=== PATIENT | male | born 1980 | race Caucasian/White ===

== ENCOUNTER 2018-04-04 15:11 | Observation (INO) | payer MEDICARE, MEDICAID ==
[2018-04-04] MEDS ORDERED: 0.9 % SODIUM CHLORIDE 1,000 ML BAG IV ONE (15:58)
--- NOTE | 2018-04-04 16:04 | Emergency Department Record ---
History of Present Illness - General Chief complaint: Male Urogenital Problem Stated complaint: UNABLE TO URINATE, NOT FELLING WELL Time Seen by Provider: 04/04/18 15:58 Source: Patient ([facility] grinder from [facility] - know this patient for 6 weeks) Mode of Arrival: Ambulatory - History of Present Illness Initial comments: Pt from [facility] with caregiver familiar with patient over past 6 weeks. Today noted decreased urine output. There is no report of fever, N/V/D. Ne recent illness, no noted urinary frequency or pain. Behavior is typical. Pt unable to add to hx due to mental challenge. Pt willing to drink today, just not making urine. No hx of similar Onset/Timin -: Days(s) Radiation: Back Severity: Mild Severity scale (1-10): 3 Quality: Aching Consistency: Constant Improves with: None Worsens with: None - Related Data Home Medications Medication Instructions Recorded Confirmed Last Taken Clobazam [Onfi] 10 mg PO DAILY 04/04/18 04/04/18 04/03/18 Divalproex Sodium [Depakote] 750 mg PO BID 04/04/18 04/04/18 04/03/18 Fluoxetine HCl 20 mg PO DAILY 04/04/18 04/04/18 04/03/18 Topiramate [Topamax] 200 mg PO BID 04/04/18 04/04/18 04/03/18 Allergies Allergy/AdvReac Type Severity Reaction Status Date / Time Unable to Assess Allergy Unverified 04/04/18 15:59 Travel Screening - Travel/Exposure Within Last 30 Days Have you traveled within the last 30 days?: No Review of Systems ROS unobtainable: Other (Review limited my Mental delay - hx by caregiver ) Constitutional: Denies: Chills, Fever ENT: Denies: Congestion Respiratory: Denies: Cough Gastrointestinal: Denies: Abdominal pain, Constipation, Diarrhea, Nausea, Vomiting Genitourinary: Denies: Discharge, Hematuria Musculoskeletal: Denies: Back pain Skin: Denies: Rash Neurological: Denies: Confusion Past Medical History - SOCIAL HISTORY Smoking Status: Never smoker Alcohol Use: None Drug Use: None - RESPIRATORY Hx Respiratory Disorders: No - CARDIOVASCULAR Hx Cardio Disorders: No - NEURO Hx Neuro Disorders: No - GI Hx GI Disorders: No - Hx Genitourinary Disorders: No - ENDOCRINE Hx Endocrine Disorders: No - MUSCULOSKELETAL Hx Musculoskeletal Disorders: No - PSYCH Hx Psych Problems: No - HEMATOLOGY/ONCOLOGY Hx Hematology/Oncology Disorders: No Family Medical History Any Significant Family History?: No Physical Exam - General General Appearance: Alert, Cooperative, No acute distress Limitations: Altered mental status, Other (mental delay - chronic ) - Head Head exam: Atraumatic, Normal inspection Head exam detail: negative: Abrasion, Billingsley's sign - Eye Eye exam: Normal appearance, PERRL, EOMI - ENT ENT exam: Mucous membranes moist, Normal orophraynx, TM's normal bilaterally - Neck Neck exam: Normal inspection - Respiratory Respiratory exam: Normal lung sounds bilaterally. negative: Wheezes - Cardiovascular Cardiovascular Exam: Regular rate, Normal rhythm Peripheral Pulses: 2+: Radial (R), Radial (L) - GI/Abdominal GI/Abdominal exam: Soft, Normal bowel sounds, Other (no pain in abdomen with standing HOP at bedside..."hurts my feet". ). negative: Guarding, Tenderness - Rectal Rectal exam: Deferred - Extremities Extremities exam: Normal inspection - Neurological Neurological exam: Alert, CN II-XII intact, Normal gait - Psychiatric Psychiatric exam: Normal mood. negative: Anxious, Depressed - Skin Skin exam: Normal color. negative: Rash Course Vital Signs 04/04/18 15:48 Temperature 99.1 F Pulse Rate 62 Respiratory 16 Rate Blood Pressure 109/65 Pulse Ox 93 L - Reevaluation(s) Reevaluation #1: 04/04/18 17:43 See note in MDM section regarding admission and Dr. Haider discussion. 04/04/18 17:43 Solumedrol 60mg given at recommendation of Dr. Haider per Dr. Rodriguez advice. Medical Decision Making - Management Options MDM Management: Additional Work-up Planned (e.g. ADM/Transfer/OP Study) - Data Complexity MDM Data: Labs Ordered and/or Reviewed, X-Ray Ordered and/or Reviewed, Independent Visualization of Image, Tracing, or Specimen - Lab Data Result diagrams: 04/04/18 16:15 04/04/18 16:15 - Radiology Data -: Radiology Exam Interpreted by Myself - Medical Decision Making [facility] a [facility]. Has visiting physician. Presents with low urine output. Found to have Thrombocytopenia. Plan for admission with Hematology, Dr. Rodriguez consult. Dr. Haider aware and accepts, case was reviewed with Dr. Rodriguez by Dr. Haider. US in progress for spleen. AB given for UTI, culture sent. Orders to floor completed: HOLD Prozac. Disposition Disposition: Admit Clinical Impression: Thrombocytopenia, Hyponatremia, UTI (urinary tract infection) Disposition: Still a Patient at [facility] Decision to Admit: Admit from ER Decision to Admit Date: 04/04/18 Decision to Admit Time: 17:30 Accepting Physician: Dr Haider Time Discussed w/Accepting Physician: 17:30 Condition: (3) Guarded Forms: Patient Portal Access Quality - Quality Measures Quality Measures: N/A - Blood Pressure Screening Does Patient Have Any of the Following: No Blood Pressure Classification: Normal BP Reading Systolic Measurement: 109 Diastolic Measurement: 65 Screening for High Blood Pressure: < Normal BP, F/U Not Required > [G8783]
[2018-04-04 16:08] LABS: URINE APPEARANCE CLEAR; URINE BILIRUBIN SMALL (NEGATIVE); URINE BLOOD SMALL (NEGATIVE); URINE COLOR YELLOW; URINE KETONE TRACE (NEGATIVE); URINE LEUKOCYTE ESTERASE TRACE (NEGATIVE); URINE NITRITE POSITIVE (NEGATIVE)
[2018-04-04 16:10] LABS: URINE PROTEIN 300 mg/dL (NEGATIVE)
[2018-04-04 16:30] LABS: HEMATOCRIT 36.6 % (42.0-52.0); HEMOGLOBIN 12.8 gm/dl (14.0-18.0); MEAN CELL VOLUME 90.4 fl (81-97); MEAN CORPUSCULAR HEMOGLOBIN 31.6 pg (27-33); MEAN PLATELET VOLUME 9.4 fl (7.4-10.4); RED BLOOD COUNT 4.05 M/uL (4.40-5.70); WHITE BLOOD COUNT W/O DIFF 7.1 K/uL (4.2-12.2)
[2018-04-04 16:34] LABS: PLATELET COUNT 22 K/uL (130-400)
[2018-04-04 16:40] LABS: BLOOD UREA NITROGEN 15 mg/dL (6-20); CREATININE 0.7 mg/dL (0.7-1.2); EST GLOMERULAR FILTRATION RATE > 60 mL/min
[2018-04-04 16:43] LABS: GLUCOSE,RANDOM 93 mg/dL (74-109)
[2018-04-04 16:55] LABS: ANISOCYTOSIS 2+; OVALOCYTES 1+; PLATELET ESTIMATE DECREASED (NORMAL)
[2018-04-04] MEDS ORDERED: CEFTRIAXONE SODIUM 1 GM in 0.9 % SODIUM CHLORIDE 100ML 100 ML IVPB ONE (17:02)
[2018-04-04 17:23] LABS: ALBUMIN 3.3 g/dL (4.0-5.0); ALKALINE PHOSPHATASE 40 U/L (40-129); ALT/SGPT 38 U/L (<41); AST/SGOT 63 U/L (10.0-50.0)
[2018-04-04 17:25] LABS: BILIRUBIN,DIRECT < 0.2 mg/dL (0-0.3)
[2018-04-04] MEDS ORDERED: METHYLPREDNISOLONE PF 125MG/VIAL IVP ONE (17:30)
[2018-04-04 17:31] LABS: URINE APPEARANCE CLEAR; URINE BILIRUBIN NEGATIVE (NEGATIVE); URINE BLOOD TRACE-I (NEGATIVE); URINE COLOR YELLOW; URINE GLUCOSE (UA) NEGATIVE (NEGATIVE); URINE KETONE NEGATIVE (NEGATIVE); URINE LEUKOCYTE ESTERASE NEGATIVE (NEGATIVE); URINE NITRITE NEGATIVE (NEGATIVE)
[2018-04-04 17:37] LABS: INR 1.1; PARTIAL THROMBOPLASTIN TIME 29.7 SECONDS (24.5-39.1); PROTHROMBIN TIME (PATIENT) 11.6 SECONDS (9.5-12.1)
[2018-04-04 17:53] LABS: URINE AMORPHOUS SEDIMENT 2+; URINE MUCUS HEAVY; URINE RENAL EPITHELIAL CELLS 0 - 2 /hpf; URINE TRANSITIONAL EPI CELLS 0 - 2 /hpf
[2018-04-04] MEDS ORDERED: 0.9 % SODIUM CHLORIDE 1000ML 1,000 ML IV PRN (19:16)
[2018-04-04] MEDS: TOPIRAMATE 100MG TABLET PO SCH (21:28)
[2018-04-04] MEDS ORDERED: DIVALPROEX SODIUM 250 MG TAB.ER.24H PO SCH (22:00)
[2018-04-05] MEDS ORDERED: CEFTRIAXONE 1GM/50ML BAG 1 GM/50 ML BAG IVPB SCH (06:00)
[2018-04-05] MEDS ORDERED: METHYLPREDNISOLONE PF 125MG/VIAL IVP SCH (06:00)
--- NOTE | 2018-04-05 07:13 | RADIOLOGY REPORT ---
EXAM: CHEST, TWO VIEWS HISTORY: WEAKNESS. TECHNIQUE: Frontal and lateral views of the chest were obtained. Comparison: None. FINDINGS: The heart size is normal. Left sided stimulating device noted. The lungs are clear. No pneumothorax. IMPRESSION: NO ACUTE CARDIOPULMONARY PROCESS. JOB NUMBER: [id number] MTDD
--- NOTE | 2018-04-05 07:17 | ULTRASOUND REPORT ---
EXAM: ULTRASOUND OF THE ABDOMEN HISTORY: PAIN. TECHNIQUE: Complete transabdominal ultrasound of the abdomen was obtained. Comparison: None. FINDINGS: The liver is homogeneous in echotexture without focal lesion. No gallstones or gallbladder wall thickening. The CBD measures 3.7 mm. The visualized pancreas is unremarkable. The spleen is unremarkable at 12 cm. The right kidney measures 11 x 5 cm and the left kidney measures 11 x 5 cm. Portions of the pancreas were not well seen due to bowel gas. No renal calculus , mass, or hydronephrosis. The visualized abdominal aorta and inferior vena cava are unremarkable. No free fluid. IMPRESSION: UNREMARKABLE COMPLETE TRANSABDOMINAL ULTRASOUND OF THE ABDOMEN. JOB NUMBER: [id number] MTDD
[2018-04-05] MEDS ORDERED: 0.9 % SODIUM CHLORIDE 1000ML 1,000 ML IV ONE (07:34)
[2018-04-05 08:19] LABS: HEMATOCRIT 39.7 % (42.0-52.0); HEMOGLOBIN 13.3 gm/dl (14.0-18.0); MEAN CELL VOLUME 90.4 fl (81-97); MEAN CORPUSCULAR HGB CONC 33.5 g/dl (32-36); PLATELET COUNT 93 K/uL (130-400); RED BLOOD COUNT 4.39 M/uL (4.40-5.70); RED CELL DISTRIBUTION WIDTH 13.2 % (11.5-14.5); WHITE BLOOD COUNT W/O DIFF 3.9 K/uL (4.2-12.2)
[2018-04-05 08:22] LABS: MEAN CORPUSCULAR HEMOGLOBIN 30.2 pg (27-33)
[2018-04-05 09:01] LABS: PLATELET ESTIMATE DECREASED (NORMAL)
--- NOTE | 2018-04-05 09:47 | History and Physical Report ---
DATE OF EVALUATION: 04/04/2018 DATE OF ADMISSION: 04/04/2018 CHIEF COMPLAINT: Not urinating much and back pain; not acting like himself. He was brought to the ER for evaluation from a detention. He has mental retardation, and he normally has his primary care physician and visiting physician. He was found in the Emergency Department to have thrombocytopenia, but he has no history of this. PAST MEDICAL HISTORY: Mental retardation and seizure disorder, anxiety and depression. He is in a detention in [place], [place]. PAST SURGICAL HISTORY: Unknown. Caregivers did not know of any surgery previously. MEDICATIONS ON ADMISSION: ONFI 10 mg b.i.d., long-acting benzodiazepine, Topamax 200 mg b.i.d., Depakote 750 b.i.d., Prozac 20 mg daily. ALLERGIES: Unable to assess, and no report of allergy from the caregivers. FAMILY PSYCHOSOCIAL HISTORY: Unobtainable. Unremarkable. No alcohol or drug use reported by caregivers. REVIEW OF SYSTEMS: HEENT: No upper respiratory infection symptoms, cough, cold, or congestion. Cardiovascular: No chest pain or difficulty breathing observed by the caregivers. Respiratory: No cough, cold or congestion. Gastrointestinal: No nausea, vomiting, diarrhea, black stools, or bloody stools. Genitourinary: Possible urinary tract infection because of his urine findings in the Emergency Department. His protein was elevated. Trace amount of ketones. Small amount of blood. Positive nitrites. Urobilinogen was 4, rbc's 3-6, wbc's 3-5, epithelial cells 7-10, heavy mucus. Valproic acid was 94.4, therapeutic range. Musculoskeletal: Moving all 4 extremities without any problems. Neurologic: He has a seizure disorder, mental retardation. Endocrine: No diabetes or thyroid disease. Integument: No rash, ulcers, changes in moles, or yellow skin. PHYSICAL EXAMINATION: VITAL SIGNS: Height is 5'5". Weight 200 pounds. Temperature 98.7, pulse 54, blood pressure 103/64, respiratory rate 17, pulse ox 97% on room air. HEENT: Pupils equal, round, and reactive to light and accommodation. Extraocular muscles intact. Throat is clear. Nose is clear. Tympanic membranes goel. NECK: Supple. No jugular venous distention. No hepatojugular reflux. No carotid bruits. Thyroid is smooth. CARDIOVASCULAR: Regular rate and rhythm without murmurs, clicks, rubs, or gallops. RESPIRATORY: Clear to auscultation and percussion. ABDOMEN: Soft, nontender, no hepatosplenomegaly. No masses or tenderness. Bowel sounds active. EXTREMITIES: No pitting edema. No cyanosis or clubbing. Full range of motion. Peripheral pulses good. BREASTS: Normal male breasts. RECTAL: Deferred. He has thrombocytopenia. GENITALIA: Normal genitalia. NEUROLOGIC: Cranial nerves II-XII intact. No gross deficits. Sensation normal. Strength normal. Deep tendon reflexes equal bilaterally. Babinski is negative. MENTAL STATUS: Alert. He is oriented to his name, but not time and place. IMPRESSION: 1. Thrombocytopenia with a platelet count of 22,000. 2. History of seizure disorder. 3. History of depression, anxiety, and he has mental retardation. PLAN: IV Solu-Medrol. Discussion with Dr. Browne. Will get a B12, folate, protein electrophoresis ordered. Ultrasound of the abdomen showed normal spleen size. Will stop any unnecessary medications. INPATIENT CERTIFICATION: Admit to Inpatient Care. Based on my medical assessment and after consideration of patient risk factors, age, comorbidities, and patient presenting symptoms on Acute, I expect this patient will remain in the hospital greater than or equal to 2 midnights, and the services needed warrant inpatient care because of thrombocytopenia and risk for bleeding. ESTIMATED LENGTH OF STAY: 3 days. The patient may reasonably be expected to be discharged or transferred to a hospital within 96 hours after admission to [facility]. I certify that my determination is in accordance with my understanding of Medicare requirements for reasonable and necessary inpatient services. WILLI
[2018-04-05] MEDS ORDERED: DIVALPROEX SODIUM 250 MG TAB.ER.24H PO SCH (10:00)
[2018-04-05] MEDS: TOPIRAMATE 100MG TABLET PO SCH (10:51)
--- NOTE | 2018-04-05 13:23 | Discharge Note ---
VTE H&P Assessment - Risk for VTE Risk for VTE: No Risk Level: Very Low Risk Assessment Date: 04/04/18 Risk Assessment Time: 20:00 VTE Orders Placed or Will Be Placed: No VTE Reason for No Prophylaxis: Not Indicated Discharge Medications - Discharge Medications Home Medications: Ambulatory Orders Clobazam [Onfi] 10 mg PO BID 04/04/18 [Last Taken 04/03/18] Divalproex Sodium [Depakote] 750 mg PO BID 04/04/18 [Last Taken 04/03/18] Fluoxetine HCl 20 mg PO DAILY 04/04/18 [Last Taken 04/03/18] Topiramate [Topamax] 200 mg PO BID 04/04/18 [Last Taken 04/03/18] Discharge Note - Date Date of Discharge Note: 04/05/18 Condition: (3) Guarded Forms: Patient Portal Access
--- NOTE | 2018-04-05 13:29 | Discharge Note ---
VTE H&P Assessment - Risk for VTE Risk for VTE: No Risk Level: Very Low Risk Assessment Date: 04/04/18 Risk Assessment Time: 20:00 VTE Orders Placed or Will Be Placed: No VTE Reason for No Prophylaxis: Not Indicated Discharge Medications - Discharge Medications Prescriptions: Ciprofloxacin HCl [Cipro] 500 mg PO Q12HR #14 tablet Home Medications: Ambulatory Orders Clobazam [Onfi] 10 mg PO BID 04/04/18 [Last Taken 04/03/18] Divalproex Sodium [Depakote] 750 mg PO BID 04/04/18 [Last Taken 04/03/18] Topiramate [Topamax] 200 mg PO BID 04/04/18 [Last Taken 04/03/18] Ciprofloxacin HCl [Cipro] 500 mg PO Q12HR #14 tablet 04/05/18 [Last Taken Unknown] Discharge Note - Date Date of Discharge Note: 04/05/18 Disposition: [facility] Facility Condition: (1) Good Additional Instructions: follow up with visiting physician or his primary physician in 7-10 days and will need to have his platelet count followed weekly to see if it drops and if it does will need to see hematology. stop prozaic because that could lower his platelets follow up with [facility] neurology to look at seizure meds because they could lower platelet counts too. Currently platelet count 98,000. Continue his home meds for seizures Referrals: BRIEN HOGAN [Primary Care Provider] - Forms: Patient Portal Access
[2018-04-05] MEDS ORDERED: CIPROFLOXACIN HCL 500 MG TABLET PO SCH (13:30)
[2018-04-05 14:42] LABS: BLOOD UREA NITROGEN 10 mg/dL (6-20); CREATININE 0.5 mg/dL (0.7-1.2); EST GLOMERULAR FILTRATION RATE > 60 mL/min; GLUCOSE,RANDOM 122 mg/dL (74-109)
[2018-04-08 12:56] LABS: ALPHA-1-GLOBULINS 0.25 g/dL (0.20-0.40); ALPHA-2-GLOBULINS 0.44 g/dL (0.60-1.00); ALPHA-2-GLOBULINS % 7.2 % (8.4-15.7); BETA GLOBULINS 0.99 g/dL (0.80-1.30); BETA GLOBULINS % 16.2 % (12.2-17.4); GAMMA GLOBULINS 1.37 g/dL (0.50-1.50); PROTEIN, TOTAL 6.1 g/dL (6.0-8.0)
[2018-04-09 09:45] LABS: GAMMA GLOBULINS % 22.5 % (8.3-19.6)
== END 2018-04-05 17:51 ==
LOC: ER 15:11 → MEDSURG 18:52 → INTOOBSV 18:52
PROVIDERS: ADMIT Emergency Medicine; ATTEND Emergency Medicine
DX: D69.6 Thrombocytopenia, unspecified (principal); E87.1 Hypo-osmolality and hyponatremia; N39.0 Urinary tract infection, site not specified; F79 Unspecified intellectual disabilities; G40.909 Epilepsy, unspecified, not intractable, without status epilepticus; F41.8 Other specified anxiety disorders
CPT/HCPCS: 84075; 83615; 84450; 84460; 82247; 82248; 82040; 85730; 85610; 84165; 80048 ×2; 81001; 82607; 82746; 80164; 85379; 85027 ×2; 71046; 76700; 93005; G0378 ×2; J3490 ×2; J0696; 96365; 96374; 99217; 99220; 99285; J2930; J7030

== ENCOUNTER 2018-04-24 20:22 | Emergency (ER) | payer MEDICARE, MEDICAID ==
[2018-04-24] MEDS ORDERED: 0.9 % SODIUM CHLORIDE 1,000 ML BAG IV ONE (20:50)
--- NOTE | 2018-04-24 20:54 | Emergency Department Record ---
History of Present Illness - General Chief Complaint: Altered Mental Status Stated Complaint: SLEEPY/HASN'T URINATED IN 2 DAYS Time Seen by Provider: 04/24/18 20:36 Source: [employer] (direct care supervisor), Old records reviewed Mode of Arrival: Wheelchair Limitations: Altered mental status - History of Present Illness Initial Comments: pt has been very sleepy and having difficulty walking. he was recently started on cymbalta. last time he was acting like this he was hospitalized w low platelets MD Complaint: Altered mental status, Decreased responsiveness Onset/Timin -: Days(s) Severity: Mild Consistency: Getting worse Context: History of similar presentation Associated Symptoms: Denies other symptoms - [place] Coma Scale Eye Response: (4) Open spontaneously Motor Response: (6) Obeys commands Verbal Response: (5) Oriented Shelley Total: 15 - Symptoms of Stroke Symptoms of stroke: Unsteady When Walking - Related Data Home Medications Medication Instructions Recorded Confirmed Last Taken Duloxetine HCl [Cymbalta] 30 mg PO DAILY 04/24/18 04/24/18 Unknown Allergies Allergy/AdvReac Type Severity Reaction Status Date / Time Unable to Assess Allergy Unverified 04/04/18 15:59 Travel Screening - Travel/Exposure Within Last 30 Days Have you traveled within the last 30 days?: No - Travel/Exposure Within Last Year Have you traveled outside the [place] in the last year?: No - Additonal Travel Details Have you been exposed to anyone with a communicable illness?: No - Travel Symptoms Symptom Screening: None Review of Systems ROS unobtainable: Due to mental status Reviewed: No additional complaints except as noted below Constitutional: Reports: As per HPI. Denies: Chills, Fever, Malaise, Night sweats, Weakness, Weight change Eyes: Reports: As per HPI. Denies: Eye discharge, Eye pain, Photophobia, Vision change ENT: Reports: As per HPI. Denies: Congestion, Dental pain, Ear pain, Epistaxis , Hearing loss, Throat pain Respiratory: Reports: As per HPI. Denies: Cough, Dyspnea, Hemoptysis, Stridor, Wheezes Cardiovascular: Reports: As per HPI. Denies: Arrhythmia, Chest pain, Dyspnea on exertion, Edema, Murmurs, Orthopnea, Palpitations, Paroxysmal nocturnal dyspnea, Rheumatic Fever, Syncope Endocrine: Reports: As per HPI. Denies: Fatigue, Heat or cold intolerance, Polydipsia, Polyuria Gastrointestinal: Reports: As per HPI. Denies: Abdominal pain, Constipation, Diarrhea, Hematemesis, Hematochezia, Melena, Nausea, Vomiting Genitourinary: Reports: As per HPI. Denies: Dysuria, Frequency, Hematuria, Incontinence, Retention, Testicular pain, Testicular mass, Urgency Musculoskeletal: Reports: As per HPI. Denies: Arthralgia, Back pain, Gout, Joint swelling, Myalgia, Neck pain Skin: Reports: As per HPI. Denies: Bruising, Change in color, Change in hair/ nails, Lesions, Pruritus, Rash Neurological: Reports: As per HPI, Abnormal gait, Weakness. Denies: Confusion, Headache, Numbness, Paresthesias, Seizure, Tingling, Tremors, Vertigo Psychiatric: Reports: As per HPI. Denies: Anxiety, Auditory hallucinations, Depression, Homicidal thoughts, Suicidal thoughts, Visual hallucinations Hematological/Lymphatic: Reports: As per HPI. Denies: Anemia, Blood Clots, Easy bleeding, Easy bruising, Swollen glands Past Medical History - SOCIAL HISTORY Smoking Status: Never smoker Alcohol Use: None Drug Use: None - RESPIRATORY Hx Respiratory Disorders: No - CARDIOVASCULAR Hx Cardio Disorders: No - NEURO Hx Neuro Disorders: No - GI Hx GI Disorders: No - Hx Genitourinary Disorders: No - ENDOCRINE Hx Endocrine Disorders: No - MUSCULOSKELETAL Hx Musculoskeletal Disorders: No - PSYCH Hx Psych Problems: No - HEMATOLOGY/ONCOLOGY Hx Hematology/Oncology Disorders: No Family Medical History Any Significant Family History?: No Physical Exam - General General Appearance: Alert, Cooperative, No acute distress - Head Head exam: Normal inspection - Eye Eye exam: Normal appearance, PERRL, EOMI Pupils: Normal accommodation - ENT ENT exam: Normal exam, Mucous membranes moist, Normal external ear exam, Normal orophraynx Ear exam: Normal external inspection. negative: External canal tenderness Nasal Exam: Normal inspection. negative: Discharge, Sinus tenderness Mouth exam: Normal external inspection, Tongue normal Teeth exam: Normal inspection. negative: Dental caries Throat exam: Normal inspection. negative: Tonsillar erythema, Tonsillar exudate - Neck Neck exam: Normal inspection, Full ROM. negative: Tenderness - Respiratory Respiratory exam: Normal lung sounds bilaterally. negative: Respiratory distress - Cardiovascular Cardiovascular Exam: Regular rate, Normal rhythm, Normal heart sounds - GI/Abdominal GI/Abdominal exam: Soft, Normal bowel sounds. negative: Tenderness - Rectal Rectal exam: Deferred - exam: Deferred - Extremities Extremities exam: Normal inspection, Full ROM, Normal capillary refill. negative: Tenderness - Back Back exam: Reports: Normal inspection, Full ROM. Denies: Muscle spasm, Rash noted, Tenderness - Neurological Neurological exam: Abnormal gait, Alert, CN II-XII intact. negative: Normal gait - Psychiatric Psychiatric exam: Normal affect, Normal mood - Skin Skin exam: Dry, Intact, Normal color, Warm Course Vital Signs 04/24/18 20:26 Temperature 98.2 F Pulse Rate 68 Respiratory 20 Rate Blood Pressure 103/73 Pulse Ox 96 Medical Decision Making - Lab Data Result diagrams: 04/24/18 21:04 04/24/18 21:04 Disposition Disposition: Discharge Clinical Impression: Medication side effect, Thrombocytopenia Disposition: Home, Self-Care Condition: (1) Good Instructions: Adverse Drug Reaction (ED), Thrombocytopenia (ED) Additional Instructions: follow up with family doctor. return sooner if worse. Forms: Patient Portal Access Quality - Quality Measures Quality Measures: N/A - Blood Pressure Screening Does Patient Have Any of the Following: No Blood Pressure Classification: Normal BP Reading Systolic Measurement: 103 Diastolic Measurement: 73 Screening for High Blood Pressure: < Normal BP, F/U Not Required > [G8783]
[2018-04-24 21:09] LABS: HEMATOCRIT 37.4 % (42.0-52.0); HEMOGLOBIN 12.9 gm/dl (14.0-18.0); MEAN CELL VOLUME 89.5 fl (81-97); MEAN CORPUSCULAR HGB CONC 34.5 g/dl (32-36); MEAN PLATELET VOLUME 10.6 fl (7.4-10.4); PLATELET COUNT 90 K/uL (130-400); RED BLOOD COUNT 4.18 M/uL (4.40-5.70); RED CELL DISTRIBUTION WIDTH 12.9 % (11.5-14.5); WHITE BLOOD COUNT W/O DIFF 3.9 K/uL (4.2-12.2)
[2018-04-24 21:12] LABS: MEAN CORPUSCULAR HEMOGLOBIN 30.8 pg (27-33)
[2018-04-24 21:18] LABS: BLOOD UREA NITROGEN 13 mg/dL (6-20); CREATININE 0.7 mg/dL (0.7-1.2); EST GLOMERULAR FILTRATION RATE > 60 mL/min
[2018-04-24 21:19] LABS: TOTAL PROTEIN 6.9 g/dL (6.6-8.7)
[2018-04-24 21:21] LABS: GLUCOSE,RANDOM 120 mg/dL (74-109)
[2018-04-24 21:24] LABS: ALB/GLOB RATIO 1.2 (1.1-1.8); ALBUMIN 3.8 g/dL (4.0-5.0); ALKALINE PHOSPHATASE 41 U/L (40-129); ALT/SGPT 13 U/L (<41); AST/SGOT 30 U/L (10.0-50.0)
[2018-04-24 22:11] LABS: URINE APPEARANCE CLEAR; URINE BILIRUBIN NEGATIVE (NEGATIVE); URINE BLOOD NEGATIVE (NEGATIVE); URINE COLOR YELLOW; URINE GLUCOSE (UA) NEGATIVE (NEGATIVE); URINE KETONE NEGATIVE (NEGATIVE); URINE LEUKOCYTE ESTERASE NEGATIVE (NEGATIVE); URINE NITRITE NEGATIVE (NEGATIVE); URINE PROTEIN NEGATIVE (NEGATIVE)
== END 2018-04-24 22:42 | disposition home or self-care (01) ==
LOC: ER 20:22
DX: T43.215A Adverse effect of selective serotonin and norepinephrine reuptake inhibitors, initial encounter (principal); R41.82 Altered mental status, unspecified; R26.2 Difficulty in walking, not elsewhere classified; D69.6 Thrombocytopenia, unspecified
CPT/HCPCS: 70450; 80053; 81003; 85027; 96360; 99284; J7030